=== PATIENT | male | born 1955 | race Caucasian/White ===

== ENCOUNTER 2024-09-07 03:03 | Day surgery (SDC) | payer MEDICARE, SELFPAY ==
[2024-08-29 10:09] VITALS: BMI 26.4
--- OUTSIDE RECORDS SUMMARY | 2024-09-07 03:05 | XMS_ITS | Encounter Summary ---
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 Historical Provider Final Res ult documented in this encounter Visit Diagnoses Not on filedocumented in this encounter Care Teams Metal Furniture Polisher Relationship Specialty Start Date End Date Jacob Carrero DO PCP - General Family Medicine 09/14/18 documented as of this encounter
--- OUTSIDE RECORDS SUMMARY | 2024-09-07 03:05 | XMS_ITS | Encounter Summary ---
Author Organization 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 Historical Provider Final Res ult documented in this encounter Visit Diagnoses Not on filedocumented in this encounter Care Teams Linux Unix System Administrator Relationship Specialty Start Date End Date Jacob Carrero DO PCP - General Family Medicine 09/14/18 documented as of this encounter
--- OUTSIDE RECORDS SUMMARY | 2024-09-07 03:05 | XMS_ITS | Encounter Summary ---
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 Historical Provider Final Res ult documented in this encounter Visit Diagnoses Not on filedocumented in this encounter Care Teams Director Validation Relationship Specialty Start Date End Date Jacob Carrero DO PCP - General Family Medicine 09/14/18 documented as of this encounter
--- OUTSIDE RECORDS SUMMARY | 2024-09-07 03:05 | XMS_ITS | Referral Summary ---
Author Organization [facility] Address [address] [place] [address] Care Team Providers Care School Physical Therapist Name Role Phone Jacob Carrero DO Primary Care Provider + Allergies No known active allergies Medications aspirin 81 mg chewable tablet Take 1 tablet (81 mg total) by mouth daily Active multivitamin (MULTIPLE VITAMINS ORAL) Take 1 tablet by mouth daily Active TRESIBA 100 unit/mL (3 mL) pen for injection Inject 0.22 mL (22 Units total) as directed nightly 04/16/2022 Active Jardiance 10 mg tablet TAKE 1 TABLET BY MOUTH EVERY DAY 90 tablet 1 07/13/2022 Active amLODIPine (NORVASC) 5 mg tablet TAKE 1 TABLET BY MOUTH EVERY DAY 90 tablet 1 07/13/2022 Active metFORMIN (GLUCOPHAGE) 500 mg tablet TAKE 1 TABLET BY MOUTH TWICE A DAY WITH MEALS 180 tablet 1 07/13/2022 Active sildenafiL (VIAGRA) 100 mg tablet TAKE 1 TABLET BY MOUTH NEEDED 5 tablet 09/30/2022 Active semaglutide (Ozempic) 0.25 mg or 0.5 mg(2 mg/1.5 mL) pen injector injection Inject 0.25 mg under the skin once a week Active valsartan-hydro chlorothiazide (DIOVAN-HCT) 320-12.5 mg per tablet TAKE 1 TABLET BY MOUTH EVERY DAY 90 tablet 1 01/01/2023 Active Active Problems Problem Noted Date Diagnosed Date Annual physical exam 05/20/2021 Assessment & Plan (05/20/2021 5:45 PM MARINE WATER TENDER): Labs are reviewed. Doing very well except for the A1c remains above 10. I will get him in to see an boat deckhand. He is behind on his yearly eye exam he had 1 done approximately 18 months ago he will call in set 1 up Full code status 05/06/2020 Assessment & Plan (05/06/2020 5:42 PM MARINE WATER TENDER): Discussed with patient approximately 20minutes End of life issues/Advanced Directives/Healthcare Surrogate. Discussed DNR. Encouraged to discuss further with family and consult tax services specialist or complete [place] approved form, which I would be glad to assist them with completion. All questions answered. polst form filled out and signed Diabetes 10/13/2016 Assessment & Plan (12/09/2022 3:48 PM CDT): A1c is 3 months Assessment & Plan (05/21/2022 5:45 PM MARINE WATER TENDER): Doing well Needs a eGFR Assessment & Plan (11/17/2021 5:40 PM CDT): a1c and uacr Assessment & Plan (05/20/2021 5:46 PM MARINE WATER TENDER): Refer to [facility] Assessment & Plan (11/04/2020 5:10 PM CDT): a1c and sma 7 in 3 months Urine micro albumin Assessment & Plan (05/06/2020 5:45 PM MARINE WATER TENDER): Increase metformin to 500 mg bid Assessment & Plan (11/02/2019 5:21 PM CDT): Needs better control of the diet Needs eye exam Assessment & Plan (05/04/2019 5:51 PM MARINE WATER TENDER): Better dietary Recheck a1c 6 months Assessment & Plan (10/27/2018 8:20 AM CDT): Patient is well controlled. Continue current treatment. Dyslipidemia 10/13/2016 Assessment & Plan (12/09/2022 3:48 PM CDT): Patient is well controlled. Continue current treatment. Assessment & Plan (05/21/2022 5:45 PM MARINE WATER TENDER): Patient is well controlled. Continue current treatment. Assessment & Plan (11/17/2021 5:39 PM CDT): Patient is well controlled. Continue current treatment. Lipid and lft Assessment & Plan (05/20/2021 5:45 PM MARINE WATER TENDER): Patient is well controlled. Continue current treatment. Assessment & Plan (11/04/2020 5:09 PM CDT): Lipid Assessment & Plan (11/02/2019 5:22 PM CDT): Patient is well controlled. Continue current treatment. Assessment & Plan (05/04/2019 5:52 PM MARINE WATER TENDER): Has been off med Pharmacy wouldn't refill Assessment & Plan (10/27/2018 8:20 AM CDT): Patient is well controlled. Continue current treatment. HTN (hypertension) 10/13/2016 Assessment & Plan (12/09/2022 3:48 PM CDT): Patient is well controlled. Continue current treatment. Assessment & Plan (05/21/2022 5:45 PM MARINE WATER TENDER): Patient is well controlled. Continue current treatment. Assessment & Plan (11/17/2021 5:39 PM CDT): Routine lab Patient is well controlled. Continue current treatment. Assessment & Plan (05/20/2021 5:45 PM MARINE WATER TENDER): Patient is well controlled. Continue current treatment. Assessment & Plan (11/04/2020 5:11 PM CDT): Patient is well controlled. Continue current treatment. Cont amlodipine Cont jardiance Assessment & Plan (11/02/2019 5:22 PM CDT): Patient is well controlled. Continue current treatment. Assessment & Plan (05/04/2019 5:52 PM MARINE WATER TENDER): Patient is well controlled. Continue current treatment. Assessment & Plan (10/27/2018 8:20 AM CDT): Patient is well controlled. Continue current treatment. Immunizations Immunization Administration Dates Next Due Flucelvax Influenza Quad 02/19/2017 Influenza, Quad, Adjuvantate d, Intramuscular 03/10/2022 Influenza, Quadrivalent, Ekta l Culture-based MDCK, Antibiotic Free, Intramuscular 03/04/2018 Influenza, Quadrivalent, Spl it, Intramuscular 01/24/2019,02/28/2016 Influenza, Quadrivalent, Spl it, Preservative Free, Intramuscular 03/15/2021,01/17/2020,01/24/2019 Influenza, Trivalent, Preser vative Free, Intramuscular 02/27/2016,03/01/2015 Influenza, Unspecified 01/03/2022,01/03/2021 Pfizer SARS-CoV-2 Monovalent Vaccination (12+ Yrs) PURPLE 09/17/2020,08/24/2020 Tdap 02/19/2017 ZOSTER Recombinant 03/10/2022 Social History Tobacco Use Types Packs/Day Years Used Date Smoking Tobacco: Never Smokeless Tobacco: Never Tobacco Cessation:Counseling Given: Not Answered Alcohol Use Standard Drinks/Week Comments Never 0 (1 standard drink = 0.6 oz pur e alcohol) AUDIT-C Answer Date Recorded Q1: How often do you have a drink containing alcohol? Never 05/21/2022 Q2: How many drinks containi ng alcohol do you have on a typical day when you are drinking? Patient does not drink 3 Q3: How often do you have si x or more drinks on one occasion? Never 05/21/2022 PHQ-2 Answer Date Recorded PHQ-2 Total Score (If total score is 3 or more points, staff should administer the PHQ-9) 0 05/20/2021 Personal Safety Answer Date Recorded Getting School Help Needed Not on file 03/15 Sex and Gender Information Value Date Recorded Sex Assigned at Not on file Legal Sex Male 7:39 PM MARINE WATER TENDER Gender Identity Not on file Sexual Orientation Not on file Last Filed Vital Signs Vital Sign Reading Time Taken Comments Blood Pressure 130/80 12/09/2022 3:19 PM CDT Pulse 73 12/09/2022 3:19 PM CDT Temperature 36.7 C (98 F) 12/09/2022 3:19 PM CDT Respiratory Rate 18 12/09/2022 3:19 PM CDT Oxygen Saturation 95% 12/09/2022 3:19 PM CDT Inhaled Oxygen Concentration - - Weight 91.3 kg (201 lb 3.2 oz) 12/09/2022 3:19 P M CDT Height 177.8 cm (5' 10) 12/09/2022 3:19 PM CDT Body Mass Index 28.87 12/09/2022 3:19 PM CDT Plan of Treatment Not on file Procedures Procedure Name Priority Date/Time Associated Diagnosis Comments BASIC METABOLIC PANEL Routine 03/05/2023 8:07 AM MARINE WATER TENDER Type 2 diabetes mellitus without complication, unspecified whether termite renewal inspector insulin use (HCC) HEMOGLOBIN A1C Routine 03/05/2023 8:07 AM MARINE WATER TENDER Type 2 diabetes mellitus without complication, unspecified whether assisted insulin use (HCC) DIABETIC EYE EXAM Routine 01/13/2023 ALBUMIN CREATININE RATIO, URINE Routine 11/17/2022 8:12 AM CDT Type 2 diabetes mellitus without complication, unspecified whether termite renewal inspector insulin use (HCC) PSA SCREEN Routine 11/17/2022 8:12 AM CDT Screening PSA (prostate specific antigen) LIPID PANEL Routine 05/07/2022 8:28 AM MARINE WATER TENDER Primary hypertension Dyslipidemia Type 2 diabetes mellitus without complication, unspecified whether assisted insulin use (HCC) HEPATITIS C ANTIBODY Routine 10/30/2020 3:52 PM CDT Medicare annual wellness visit, initial Exposure to potentially hazardous body fluids COLONOSCOPY Routine 04/18/2014 from Last 3 Months or Most Recently Relevant to Health Maintenance Results * (ABNORMAL) Hemoglobin A1c (03/05/2023 8:07 AM MARINE WATER TENDER) Pathologist [facility] Hgb A1C 7.1(H) 4.8 - 5.6 % [facility] - 01 Comment: Prediabetes: 5.7 - 6.4 Diabetes: >6.4 Glycemic control for adults with diabetes: <7.0 Blood 03/05/2023 8:07 AM MARINE WATER TENDER 03/05/2023 Narrative [facility] - 03/06/2023 7:36 AM MARINE WATER TENDER Performed at: [address] [place] [address] [id number] Permastone Mechanic: Waldemar Kelly PhD, Phone: [phone] Jacob Carrero DO LAB BLOOD ORDERABLES Fin al Result [facility] - 01 * (ABNORMAL) Basic metabolic panel (03/05/2023 8:07 AM MARINE WATER TENDER) Pathologist [facility] Glucose 136(H) 70 - 99 mg/dL [facility] - 01 BUN 17 8 - 27 mg/dL [facility] - 01 Creatinine, Serum 0.96 0.76 - 1.27 mg/dL [facility] - 01 eGFR 87 >59 mL/min/1.7 3 [facility] - 01 BUN/creat ratio 18 10 - 24 [facility] - 01 Sodium 137 134 - 144 mmol/L [facility] - 01 Potassium, sr 4.3 3.5 - 5.2 mmol/L [facility] - 01 Chloride 97 96 - 106 mmol/L [facility] - 01 CO2 24 20 - 29 mmol/L [facility] - 01 Calcium 10.3(H) 8.6 - 10.2 mg/dL [facility] - 01 Blood 03/05/2023 8:07 AM MARINE WATER TENDER 03/05/2023 Narrative [facility] - 03/06/2023 7:36 AM MARINE WATER TENDER Performed at: - [facility] [id number] Permastone Mechanic: Waldemar Kelly PhD, Phone: [phone] Jacob Carrero DO LAB BLOOD ORDERABLES Fin al Result Performing Organization Address [facility] de Phone Number [facility] - * Diabetic Eye Exam (01/13/2023) Historical Provider HEALTH MAINTENANCE Final Result * PSA screen (11/17/2022 8:12 AM CDT) PSA 3.8 0.0 - 4.0 ng/mL [facility] - 01 Comment: Minister[employer] ECLIA methodology. According to the [place] [employer], Serum PSA should decrease and remain at undetectable levels after radical prostatectomy. The AUA defines biochemical recurrence as an initial PSA value 0.2 ng/mL or greater followed by a subsequent confirmatory PSA value 0.2 ng/mL or greater. Values obtained with different assay methods or kits cannot be used interchangeably. Results cannot be interpreted as absolute evidence of the presence or absence of malignant disease. Blood 11/17/2022 8:12 AM CDT 11/17/2022 Narrative [facility] - 11/18/2022 7:37 AM CDT Performed at: [address] [place] [address] [id number] Permastone Mechanic: Waldemar Kelly PhD, Phone: [phone] Jacob Carrero DO LAB BLOOD ORDERABLES Fin al Result Performing Organization Address [facility] de Phone Number [facility] - 01 * Albumin Creatinine Ratio, Urine (11/17/2022 8:12 AM CDT) Creatinine ur 84.1 Not Estab. mg/dL [facility] - 01 Microalbumin, ur <3.0 Not Estab. ug/mL [facility] - 01 Microalbumin/cre at ratio <4 0 - 29 mg/g creat [facility] - 01 Comment: Normal: 0 - 29 Moderately increased: 30 - 300 Severely increased: >300 Urine 11/17/2022 8:12 AM CDT 11/17/2022 Narrative [facility] - 11/18/2022 7:37 AM CDT Performed at: [address] [place] [address] [id number] Permastone Mechanic: Waldemar Kelly PhD, Phone: [phone] Jacob Carrero DO LAB URINE ORDERABLES Fin al Result Performing Organization Address [facility] de Phone Number [facility] - * Lipid panel (05/07/2022 8:28 AM MARINE WATER TENDER) Pathologist [facility] Cholesterol 149 100 - 199 mg/dL [facility] - 01 Triglycerides 133 0 - 149 mg/dL [facility] - 01 HDL Cholesterol 50 >39 mg/dL [facility] - 01 VLDL 23 5 - 40 mg/dL [facility] - 01 LDL, calculated 76 0 - 99 mg/dL [facility] - 01 Blood specimen (specimen) 05/07/2022 8:28 AM MARINE WATER TENDER 05/07/2022 Narrative [facility] - 05/08/2022 7:36 AM MARINE WATER TENDER Performed at: [address] [place] [address] [id number] Permastone Mechanic: Waldemar Kelly PhD, Phone: [phone] Jacob Carrero DO LAB BLOOD ORDERABLES Fin al Result Performing Organization Address [facility] de Phone Number [facility] - 01 * Hepatitis C antibody (10/30/2020 3:52 PM CDT) Pathologist [facility] Hep C Ab <0.1 0.0 - 0.9 s/co ratio [facility] - 01 Comment: Negative: < 0.8 Indeterminate: 0.8 - 0.9 Positive: > 0.9 The CDC recommends that a positive HCV antibody result be followed up with a HCV Nucleic Acid Amplification test (404061). Blood specimen (specimen) 10/30/2020 3:52 PM CDT 10/30/2020 Narrative [facility] - 10/31/2020 9:36 AM CDT Performed at: [facility] [id number] Permastone Mechanic: Waldemar Kelly PhD, Phone: [phone] Jacob Carrero DO LAB MICROBIOLOGY - GENER AL ORDERABLES Final Result [facility] - 01 * Colonoscopy (04/18/2014) Anatomical Region Laterality Modality Other Historical Provider MD ENDOSCOPY PROCEDURES Whitney l Result from Last 3 Months or Most Recently Relevant to Health Maintenance Insurance [facility] Advance Directives For more information, please contact: [phone] Documents on File Type Date Recorded Patient Mult Au Matic Operator Expl anation ADVANCE DIRECTIVE 05/06/2020 Care Teams School Physical Therapist Relationship Specialty Start Date End Date Jacob Carrero DO PCP - General Family Medicine 09/14/18
--- OUTSIDE RECORDS SUMMARY | 2024-09-07 03:05 | XMS_ITS | Encounter Summary ---
Author Organization [facility] Facility Care Team Providers Care Manager Inpatient Name Role Phone Jacob Carrero DO Primary Care Provider + Encounter Details Date Type Department Care Team (Latest Contact Info) Description 05/21/2016 Orders Only [facility] CLINCONV ProviderStepan MD [address] [place] [address] [phone] Social History Tobacco Use Types Packs/Day Years Used Date Smoking Tobacco: Never Assessed Sex and Gender Information Value Date Recorded Sex Assigned at Not on file Legal Sex Male 7:39 PM INVASIVE PHYSICIAN Gender Identity Not on file Sexual Orientation Not on file documented as of this encounter Plan of Treatment Not on file documented as of this encounter Procedures Procedure Name Priority Date/Time Associated Diagnosis Comments SCAN - LABS 05/22/2016 12:00 AM INVASIVE PHYSICIAN documented in this encounter Results * SCAN - LABS (05/22/2016 12:00 AM INVASIVE PHYSICIAN) Narrative 05/22/2016 12:00 AM INVASIVE PHYSICIAN Ordered by an unspecified provider. Historical Provider Final Res ult documented in this encounter Visit Diagnoses Not on filedocumented in this encounter Care Teams Manager Inpatient Relationship Specialty Start Date End Date Jacob Carrero DO PCP - General Family Medicine 09/14/18 documented as of this encounter
--- OUTSIDE RECORDS SUMMARY | 2024-09-07 03:05 | XMS_ITS | Clinical Summary ---
Author Organization [facility] at [facility] Address [address] [place] [address] Care Team Providers Care Maintenance Controller Name Role Phone Jacob Carrero DO Primary [...] 05/20/2021 Assessment & Plan (05/20/2021 5:45 PM INVISIBLE BRACES ORTHODONTIST): Labs are reviewed. Doing very well except for the A1c remains above 10. I will get him in to see an senior biostatistician. He is behind on his yearly eye exam he had 1 done approximately 18 months ago he will call in set 1 up Full code status 05/06/2020 Assessment & Plan (05/06/2020 5:42 PM INVISIBLE BRACES ORTHODONTIST): Discussed with patient approximately 20minutes End of life issues/Advanced Directives/Healthcare Surrogate. Discussed DNR. Encouraged to discuss further with family and consult barrel tester or complete [place] approved form, which I would be glad to assist them with completion. All questions answered. polst form filled out and signed Diabetes 10/13/2016 Assessment & Plan (12/09/2022 3:48 PM CDT): A1c is 3 months Assessment & Plan (05/21/2022 5:45 PM INVISIBLE BRACES ORTHODONTIST): Doing well Needs a eGFR Assessment & Plan (11/17/2021 5:40 PM CDT): a1c and uacr Assessment & Plan (05/20/2021 5:46 PM INVISIBLE BRACES ORTHODONTIST): Refer to Payroll Associate Assessment & Plan (11/04/2020 5:10 PM CDT): a1c and sma 7 in 3 months Urine micro albumin Assessment & Plan (05/06/2020 5:45 PM INVISIBLE BRACES ORTHODONTIST): Increase metformin to 500 mg bid Assessment & Plan (11/02/2019 5:21 PM CDT): Needs better control of the diet Needs eye exam Assessment & Plan (05/04/2019 5:51 PM INVISIBLE BRACES ORTHODONTIST): Better dietary Recheck a1c 6 months Assessment & Plan (10/27/2018 8:20 AM CDT): Patient is well controlled. Continue current treatment. Dyslipidemia 10/13/2016 Assessment & Plan (12/09/2022 3:48 PM CDT): Patient is well controlled. Continue current treatment. Assessment & Plan (05/21/2022 5:45 PM INVISIBLE BRACES ORTHODONTIST): Patient is well controlled. Continue current treatment. Assessment & Plan (11/17/2021 5:39 PM CDT): Patient is well controlled. Continue current treatment. Lipid and lft Assessment & Plan (05/20/2021 5:45 PM INVISIBLE BRACES ORTHODONTIST): Patient is well controlled. Continue current treatment. Assessment & Plan (11/04/2020 5:09 PM CDT): Lipid Assessment & Plan (11/02/2019 5:22 PM CDT): Patient is well controlled. Continue current treatment. Assessment & Plan (05/04/2019 5:52 PM INVISIBLE BRACES ORTHODONTIST): Has been off med Pharmacy wouldn't refill Assessment & Plan (10/27/2018 8:20 AM CDT): Patient is well controlled. Continue current treatment. HTN (hypertension) 10/13/2016 Assessment & Plan (12/09/2022 3:48 PM CDT): Patient is well controlled. Continue current treatment. Assessment & Plan (05/21/2022 5:45 PM INVISIBLE BRACES ORTHODONTIST): Patient is well controlled. Continue current treatment. Assessment & Plan (11/17/2021 5:39 PM CDT): Routine lab Patient is well controlled. Continue current treatment. Assessment & Plan (05/20/2021 5:45 PM INVISIBLE BRACES ORTHODONTIST): Patient is well controlled. Continue current treatment. Assessment & Plan (11/04/2020 5:11 PM CDT): Patient is well controlled. Continue current treatment. Cont amlodipine Cont jardiance Assessment & Plan (11/02/2019 5:22 PM CDT): Patient is well controlled. Continue current treatment. Assessment & Plan (05/04/2019 5:52 PM INVISIBLE BRACES ORTHODONTIST): Patient is well controlled. Continue current treatment. [...] PURPLE 09/17/2020,08/24/2020 Tdap 02/19/2017 ZOSTER Recombinant 03/10/2022 Surgical History Surgery Date Site/Laterality Comments COLONOSCOPY 04/05/2014 - 04/04/2015 Medical History Medical History Date Comments Hypertension Diabetes mellitus (HCC) Hyperlipidemia Family History Medical History Relation Name Comments No Known Problems Daughter 1 No Known Problems Daughter 2 No Known Problems Daughter 3 No Known Problems Daughter 4 Alzheimer's disease Father Diabetes Mother Heart disease Mother Relation Name Status Comments Daughter 1 Alive Daughter 2 Alive Daughter 3 Alive Daughter 4 Alive Father Mother Social History Tobacco Use Types Packs/Day Years [...] you are drinking? Patient does not drink Q3: How often do you have si [...] on file Legal Sex Male 7:39 PM INVISIBLE BRACES ORTHODONTIST Gender Identity Not on file Sexual Orientation Not on file Obstetrics History Last Filed Vital Signs Vital Sign Reading [...] 12/09/2022 3:19 PM CDT Plan of Treatment Health Maintenance Due Date Last Done Comments Hepatitis B Screening 1973 Pneumococcal vaccine 65+ (1 of 2 - PCV) 1974 Abdominal Aortic Aneurysm (A AA) Screen 2020 Foot Exam 05/06/2021 05/06/2020 Zoster Vaccine (2 of 2) 05/05/2022 03/10/2022 Depression Screening 05/20/2022 05/20/2021, 05/06/2020, 05/04/2019, Additional history exists Fall Risk Assessment 05/20/2022 05/20/2021, 05/06/19 21 Well Visit 65+ 05/20/2022 05/20/2021, 05/06/2020 Lipid Panel 05/07/2023 05/07/2022, 04/06, 10/31/2019, Additional history exists Hemoglobin A1C 09/04/2023 03/05/2023, 02/05/2022, 04/29/2021, Additional history exists Albumin Creatinine Ratio, Urine 11/18/2023 3 Covid-19 Vaccine (2023-2 5 season) 2023 09/17/2020, 08/24/2020 Dilated Eye Exam 01/14/2024 01/13/2023, 08/14/2021 eGFR 03/05/2024 03/05/2023, 11/03, 05/07/2022, Additional history exists Colon Cancer Screening-Colonoscopy 04/18/2024 04/18/2014 Prostate Cancer Screening-PSA 11/17/2024, 10/30/2020, 04/29/2019 Influenza Vaccine (Season Ended) 2024 03/10/2022, 01/03/2022, 03/15/2021, Additional history exists DTaP/Tdap/Td Vaccine (2 - Td or Tdap) 02/19/2027 02/19/2017 Colon Cancer Screening-CT Colonography Discontinued 04/18/2014 Colon Cancer Screening-DNA Stool Discontinued 04/18/19 Colon Cancer Screening-FIT Discontinued 04/18/2014 Colon Cancer Screening-Sigmoidoscopy Discontinued 04/18/2014 Hepatitis C Screening Completed 10/30/2020 Procedures Procedure Name Priority Date/Time Associated Diagnosis Comments BASIC METABOLIC PANEL Routine 03/05/2023 8:07 AM INVISIBLE BRACES ORTHODONTIST Type 2 diabetes mellitus without complication, unspecified whether fpc insulin use (HCC) HEMOGLOBIN A1C Routine 03/05/2023 8:07 AM INVISIBLE BRACES ORTHODONTIST Type 2 diabetes mellitus without complication, unspecified whether long line teamster insulin use (HCC) DIABETIC EYE EXAM Routine 01/13/2023 ALBUMIN CREATININE RATIO, URINE Routine 11/17/2022 8:12 AM CDT Type 2 diabetes mellitus without complication, unspecified whether long line teamster insulin use (HCC) PSA SCREEN Routine 11/17/2022 8:12 AM CDT Screening PSA (prostate specific antigen) LIPID PANEL Routine 05/07/2022 8:28 AM INVISIBLE BRACES ORTHODONTIST Primary hypertension Dyslipidemia Type 2 diabetes mellitus without complication, unspecified whether fpc insulin use (HCC) HEPATITIS C ANTIBODY Routine 10/30/2020 3:52 PM CDT Medicare annual wellness visit, initial Exposure to potentially hazardous body fluids COLONOSCOPY Routine 04/18/2014 from Last 3 Months or Most Recently Relevant to Health Maintenance Results * (ABNORMAL) Hemoglobin A1c (03/05/2023 8:07 AM INVISIBLE BRACES ORTHODONTIST) Hgb A1C 7.1(H) 4.8 - 5.6 % [facility] - 01 Comment: Prediabetes: 5.7 - 6.4 Diabetes: >6.4 Glycemic control for adults with diabetes: <7.0 Blood 03/05/2023 8:07 AM INVISIBLE BRACES ORTHODONTIST 03/05/2023 Narrative [facility] - 03/06/2023 7:36 AM INVISIBLE BRACES ORTHODONTIST Performed at: - [facility] [id number] Corrugator Supervisor: Waldemar Kelly PhD, Phone: [phone] Jacob Carrero DO LAB BLOOD ORDERABLES Fin al Result [facility] - 01 * (ABNORMAL) Basic metabolic panel (03/05/2023 8:07 AM INVISIBLE BRACES ORTHODONTIST) Glucose 136(H) 70 - 99 mg/dL [facility] [...] [facility] - 01 Blood 03/05/2023 8:07 AM INVISIBLE BRACES ORTHODONTIST 03/05/2023 Narrative [facility] - 03/06/2023 7:36 AM INVISIBLE BRACES ORTHODONTIST Performed at: [facility] [id number] Corrugator Supervisor: Waldemar Kelly PhD, Phone: [phone] Jacob Carrero DO LAB BLOOD ORDERABLES Fin al Result Performing Organization Address [facility] Co de Phone Number [facility] - * Diabetic Eye Exam (01/13/2023) Historical Provider MD HEALTH MAINTENANCE Final Result * PSA screen (11/17/2022 8:12 AM CDT) PSA 3.8 0.0 - 4.0 ng/mL [facility] - Comment: Minister[employer] ECLIA methodology. According to the [place] [employer], Serum PSA should decrease and [...] - 11/18/2022 7:37 AM CDT Performed at: [facility] [id number] Corrugator Supervisor: Waldemar Kelly PhD, Phone: [phone] Jacob Carrero DO LAB BLOOD ORDERABLES Fin al Result Performing Organization Address [facility]/ZIP Co de Phone Number [facility] - * Albumin Creatinine Ratio, Urine (11/17/2022 8:12 [...] - 11/18/2022 7:37 AM CDT Performed at: [address] [id number] Corrugator Supervisor: Waldemar Kelly PhD, Phone: [phone] us Jacob Carrero DO LAB URINE ORDERABLES Fin al Result Performing Organization Address [facility] de Phone Number [facility] * Lipid panel (05/07/2022 8:28 AM INVISIBLE BRACES ORTHODONTIST) [facility] Cholesterol 149 100 - 199 mg/dL [facility] - 01 Triglycerides 133 0 - 149 mg/dL [facility] - 01 HDL Cholesterol 50 >39 mg/dL [facility] - 01 VLDL 23 5 - 40 mg/dL [facility] - 01 LDL, calculated 76 0 - 99 mg/dL [facility] - 01 Blood specimen (specimen) 05/07/2022 8:28 AM INVISIBLE BRACES ORTHODONTIST 05/07/2022 Narrative [facility] - 05/08/2022 7:36 AM INVISIBLE BRACES ORTHODONTIST Performed at: [address] [id number] Corrugator Supervisor: Waldemar Kelly PhD, Phone: [phone] us Jacob Carrero DO LAB BLOOD ORDERABLES Fin al Result Performing Organization Address [facility] de Phone Number [facility] * Hepatitis C antibody (10/30/2020 3:52 PM CDT) [facility] Hep C Ab <0.1 0.0 - 0.9 s/co ratio [facility] - 01 Comment: Negative: < 0.8 Indeterminate: 0.8 - 0.9 Positive: > 0.9 The CDC recommends that a positive HCV antibody result be followed up with a HCV Nucleic Acid Amplification test (715858). Blood specimen (specimen) 10/30/2020 3:52 PM CDT 10/30/2020 Narrative [facility] - 10/31/2020 9:36 AM CDT Performed at: 01 - [address] [id number] Corrugator Supervisor: Waldemar Kelly PhD, Phone: [phone] Jacob Carrero DO LAB MICROBIOLOGY - GENER AL ORDERABLES Final Result [facility] - [facility] * Colonoscopy (04/18/2014) Anatomical Region Laterality Modality Other Historical Provider MD ENDOSCOPY PROCEDURES Whitney l Result from Last 3 Months or Most Recently Relevant to Health Maintenance [place] [address] [place] [address] [facility] Advance Directives For more information, please contact: [phone] Documents on File Type Date Recorded Patient Skip Tracer Expl anation ADVANCE DIRECTIVE 05/06/2020 Care Teams Maintenance Controller Relationship Specialty Start Date End Date Jacob Carrero DO PCP - General Family Medicine 09/14/18
--- OUTSIDE RECORDS SUMMARY | 2024-09-07 03:05 | XMS_ITS | Encounter Summary ---
Author Organization [facility] Care Team Providers Care Technical Implementation Lead Name Role Phone Jacob Carrero DO Primary Care Provider + Encounter Details Date Type Department Care Team (Latest Contact Info) Description 04/01/2015 Orders Only [facility] CLINCONV ProviderStepan MD [address] [place] [id number] Social History Tobacco Use Types Packs/Day Years Used Date Smoking Tobacco: Never Assessed Sex and Gender Information Value Date Recorded Sex Assigned at Not on file Legal Sex Male 7:39 PM ROCKET ENGINE TESTER Gender Identity Not on file Sexual Orientation Not on file documented as of this encounter Plan of Treatment Not on file documented as of this encounter Procedures Procedure Name Priority Date/Time Associated Diagnosis Comments SCAN - LABS 04/01/2015 12:00 AM ROCKET ENGINE TESTER documented in this encounter Results * SCAN - LABS (04/01/2015 12:00 AM ROCKET ENGINE TESTER) Narrative 04/01/2015 12:00 AM ROCKET ENGINE TESTER Ordered by an unspecified provider. us Historical Provider Final Res ult documented in this encounter Visit Diagnoses Not on filedocumented in this encounter Care Teams Technical Implementation Lead Relationship Specialty Start Date End Date Jacob Carrero DO PCP - General Family Medicine 09/14/18 documented as of this encounter
[2024-09-07 09:36] VITALS: BP 115/82; PULSE 73; RESP 18; TEMP 36.7; O2SAT 99; BMI 26.2
--- NOTE | 2024-09-07 09:39 | SUR.PREOP ---
Dexcom monitor reading 140 in preop.
[2024-09-07] MEDS: LACTATED RINGERS 1,000 ML 30 ML IV CONT (09:55)
--- NOTE | 2024-09-07 10:31 | P.PNAN_ITS ---
Anes - Initial Pre Proc Eval Procedure: Operation Date: 09/07/24 11:00 Proposed Procedures p Screening Colonoscopy - Jerry Moy MD Date/Time: 09/07/24 10:31 Surgeon: Jerry Moy MD Pre Op Diagnosis: Encounter for screening for malignant neoplasm of Patient Data Age: 69 Gender: M Height: 1.8 m Weight: 85.3 kg Last Vital Signs Temp 98.1 F 09/07/24 09:36 Pulse 73 09/07/24 09:36 Resp 18 09/07/24 09:36 BP 115/82 09/07/24 09:36 Pulse Ox 99 09/07/24 09:36 O2 Del Method Room Air 09/07/24 09:36 Allergies Allergy/AdvReac Type Severity Reaction Status Date / Time No Known Allergies Allergy Verified 09/07/24 09:35 Home Medications ?Medication ?Instructions ?Recorded ?Confirmed ?Type aspirin 81 mg chewable tablet 81 mg PO DAILY 01/28/22 09/07/24 History multivitamin 1 tablet PO DAILY 01/28/22 09/07/24 History glucagon 1 mg/0.2 mL subcutaneous 1 mg (0.2 mL) subcut ONCE PRN 02/09/22 08/29/24 Rx auto-injector (Gvoke HypoPen hypoglycemia #0.2 mL 1-Pack) pen needle, diabetic 32 gauge x #400 ea 12/08/22 08/22/24 Rx 5/32 (BD Ultra-Fine Brenda Pen Needle) blood-glucose sensor (Dexcom G7 06/15/23 08/22/24 History Sensor device) empagliflozin 25 mg tablet See Rx Instructions .Route 02/16/24 09/07/24 Rx (Jardiance) .COMPLEX #90 tabs semaglutide 2 mg/dose (8 mg/3 mL) 2 mg (0.75 mL) subcut WEEKLY #9 mL 03/17/24 09/07/24 Rx subcutaneous pen injector valsartan 320 1 tablet PO DAILY #90 tabs 03/22/24 09/07/24 Rx mg-hydrochlorothiazide 12.5 mg tablet amlodipine 5 mg tablet See Rx Instructions .Route 05/15/24 09/07/24 Rx .COMPLEX #90 tabs atorvastatin 40 mg tablet 40 mg PO DAILY #90 tabs 02/10/25 06/05/25 Rx ergocalciferol (vitamin D2) 1,250 1,250 mcg PO WEEKLY 14 weeks #14 08/21/24 09/07/24 Rx mcg (50,000 unit) capsule caps insulin degludec 100 unit/mL (3 See Rx Instructions .Route .COMPLEX 08/29/24 09/07/24 History mL) subcutaneous pen (Tresiba FlexTouch U-100 insulin) metformin 500 mg tablet See Rx Instructions .Route 09/05/24 09/07/24 Rx .COMPLEX #90 tabs Patient hx anesthesia problems: none Family hx anesthesia problems: none Results Review: All pre-operative results and documents have been reviewed as part of the pre- operative evaluation. [facility] Past Medical History Medical History Hyperlipidemia LDL goal <100 BMI greater than 40 Type 2 diabetes mellitus Family History Family History Mother Diabetes mellitus Hypertension Heart disease Grandparent Diabetes mellitus Social History Social History Smoking status: Never smoker Alcohol intake: never Substance use: never Substance use type: does not use Do You Feel Safe in your Home?: Yes Lack of Transportation: No Lack of Food: Never True Current Housing: I Have Housing Concerned About Future Housing: No Difficulty Paying Gas/Electric Bills: No Difficulty Paying for Meds: No Currently Unemployed: No Education: Associate Degree Difficulty w/ Childcare or Family Care: No Agree to blood products: Yes Anes - Eval Final PreProcedure Day of Procedure 09/07/24 10:31 Patient weight: normal Lungs: normal air movement Airway: Mallampati scale class II and special considerations (Lower partial. ) Neurological: alert and oriented Last oral intake: >/= 8 hours ASA classification: III Emergent: no Anesthetic plan: proceed Anesthesia type and monitoring: general GIVS and standard monitoring Results Review: All pre-operative results and documents have been reviewed as part of the pre- operative evaluation. HTN, hyperlipidemia, DM. Active w riding 4 wheelers, no cp or sob. Informed Consent: The patient's anesthetic plan and its attendant risks and benefits were discussed with the patient/family/POA. Questions were solicited and answers provided to the satisfaction of the patient/family/POA.
--- NOTE | 2024-09-07 10:34 | PM.IMHP ---
H&P: HPI History of Present Illness Date/Time: 09/07/24 10:34 Chief Complaint: screening colonoscopy Narrative: This is the patient's 2nd colonoscopy. There are no GI symptoms and there is no family history of colorectal cancer. Review of Systems Review of Systems: All systems reviewed & are unremarkable except as noted in HPI and below PMFSH Past Medical History Medical History Hyperlipidemia LDL goal <100 BMI greater than 40 Type 2 diabetes mellitus Family History Family History Mother Diabetes mellitus Hypertension Heart disease Grandparent Diabetes mellitus Social History Social History Smoking status: Never smoker Alcohol intake: never Substance use: never Substance use type: does not use Do You Feel Safe in your Home?: Yes Lack of Transportation: No Lack of Food: Never True Current Housing: I Have Housing Concerned About Future Housing: No Difficulty Paying Gas/Electric Bills: No Difficulty Paying for Meds: No Currently Unemployed: No Education: Associate Degree Difficulty w/ Childcare or Family Care: No Agree to blood products: Yes Meds Home Medications and Allergies Home Medications ?Medication ?Instructions ?Recorded ?Confirmed ?Type aspirin 81 mg chewable tablet 81 mg PO DAILY 01/28/22 09/07/24 History multivitamin 1 tablet PO DAILY 01/28/22 09/07/24 History glucagon 1 mg/0.2 mL subcutaneous 1 mg (0.2 mL) subcut ONCE PRN 02/09/22 08/29/24 Rx auto-injector (Gvoke HypoPen hypoglycemia #0.2 mL 1-Pack) pen needle, diabetic 32 gauge x #400 ea 12/08/22 08/22/24 Rx /32 (BD Ultra-Fine Brenda Pen Needle) blood-glucose sensor (Dexcom G7 06/15/23 08/22/24 History Sensor device) empagliflozin 25 mg tablet See Rx Instructions .Route 02/16/24 09/07/24 Rx (Jardiance) .COMPLEX #90 tabs semaglutide 2 mg/dose (8 mg/3 mL) 2 mg (0.75 mL) subcut WEEKLY #9 mL 03/17/24 09/07/24 Rx subcutaneous pen injector valsartan 320 1 tablet PO DAILY #90 tabs 03/22/24 09/07/24 Rx mg-hydrochlorothiazide 12.5 mg tablet amlodipine 5 mg tablet See Rx Instructions .Route 05/15/24 09/07/24 Rx .COMPLEX #90 tabs atorvastatin 40 mg tablet 40 mg PO DAILY #90 tabs 05/15/24 09/07/24 Rx ergocalciferol (vitamin D2) 1,250 1,250 mcg PO WEEKLY 14 weeks #14 08/21/24 09/07/24 Rx mcg (50,000 unit) capsule caps insulin degludec 100 unit/mL (3 See Rx Instructions .Route .COMPLEX 08/29/24 09/07/24 History mL) subcutaneous pen (Tresiba FlexTouch U-100 insulin) metformin 500 mg tablet See Rx Instructions .Route 09/05/24 09/07/24 Rx .COMPLEX #90 tabs Allergies Allergy/AdvReac Type Severity Reaction Status Date / Time No Known Allergies Allergy Verified 09/07/24 09:35 Vital Signs Vital Signs - 24 hr 09/07/24 09:36 Temperature 98.1 F Pulse Rate 73 Respiratory Rate 18 Blood Pressure 115/82 Pulse Oximetry 99 Oxygen Delivery Room Air Exam Const: General: cooperative and healthy appearing Resp: Effort & Inspection: normal respiratory effort and able to speak in complete sentences Auscultation: clear to auscultation bilaterally Cardio: Rate: regular rate Rhythm: regular rhythm GI: Inspection: normal to inspection GI Palp: No No hepatosplenomegaly present Auscultation: normal bowel sounds Rectal Exam: deferred Skin: General skin exam: normal color Psych: Appearance: grossly normal Mental Status: mental status grossly normal Assessment and Plan Assessment and plan (1) Encounter for screening colonoscopy: Code(s): Z12.11 - Encounter for screening for malignant neoplasm of colon Status: Acute Assessment and Plan: The patient is deemed a good candidate for the procedure. Consent signed. Will proceed.
[2024-09-07] MEDS: SIMETHICONE ORAL SUSPENSION 20 MG/0.3 ML 30 ML BOTTLE 0.6 ML IRRIGATION (10:49)
--- NOTE | 2024-09-07 10:55 | S_PTH ---
PATIENT: Delano Duron LOC: [facility]#:[id number] AGE/SX: 69/M ROOM: RE09/07/[address]: Jerry Moy MD : 1955 BED: DIS: 09/07/2024 SPEC #: [id number] RECD: 09/07/24 11:30 STATUS: JAVIER REKayla #: [id number] KLAUS: 09/07/24 10:[address]: Jerry Moy DEPT: [facility] Surgical RECD BY: Marley Choudhury ENTERED: 09/07/24 11:31 SP TYPE: Surgical OTHR DR: Jacob CarreroMD Tissues: A - Colon Polypectomy Procedures: Hematoxylin and Eosin Stain Gross and Microscopic Level 4
[2024-09-07 10:56] VITALS: BP 90/58; PULSE 71; RESP 18; O2SAT 96
[2024-09-07 11:06] VITALS: BP 112/63; PULSE 61; RESP 18; O2SAT 94
[2024-09-07 11:16] VITALS: BP 97/61; PULSE 67; RESP 18; O2SAT 99
== END 2024-09-07 11:26 | disposition home or self-care (01) ==
PROVIDERS: PCP Family Medicine; Referring Provider Family Medicine; Visit Provider Internal Medicine Gastroenterology
PROC: 0DJD8ZZ Inspection of Lower Intestinal Tract, Via Natural or Artificial Opening Endoscopic (ICD-10-PCS; CPT 45378; principal; 2024-09-07 11:00)
DX: Z12.11 Encounter for screening for malignant neoplasm of colon (principal); K63.5 Polyp of colon; K57.30 Diverticulosis of large intestine without perforation or abscess without bleeding; E78.5 Hyperlipidemia, unspecified; I10 Essential (primary) hypertension; E11.9 Type 2 diabetes mellitus without complications; Z79.82 Long term (current) use of aspirin; Z79.84 Long term (current) use of oral hypoglycemic drugs; Z79.85 Long-term (current) use of injectable non-insulin antidiabetic drugs; Z79.4 Long term (current) use of insulin; Z82.49 Family history of ischemic heart disease and other diseases of the circulatory system
CPT/HCPCS: 45385; 88305; J2704; J7120